=== PATIENT | male | born 1995 | race Caucasian/White ===

== ENCOUNTER 2019-12-11 08:26 | Emergency (ER) | payer OTHER ==
[~2019-12-11] VITALS: Ht 177.8 cm; Wt 63.6 kg
[~2019-12-11 08:26] MED LIST: ONDA4TAB10 SL; SERT25TA PO
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
[2019-12-11] MEDS ORDERED: ACETAMINOPHEN 500 MG TABLET PO ONE (09:00)
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
[2019-12-11 10:14] VITALS: BP 112/60
== END 2019-12-11 09:55 | disposition home or self-care (01) ==
LOC: ER 08:26
DX: S00.511A Abrasion of lip, initial encounter (principal); R51 Headache; M54.2 Cervicalgia; V49.49XA Driver injured in collision with other motor vehicles in traffic accident, initial encounter; Y93.I9 Activity, other involving external motion; Y92.488 Other paved roadways as the place of occurrence of the external cause; Y99.8 Other external cause status
CPT/HCPCS: 70450; 70486; 72125; 99285-25

== ENCOUNTER 2021-04-06 14:17 | Emergency (ER) | payer BC, OTHER ==
[~2021-04-06] VITALS: Ht 177.8 cm; Wt 63.8 kg
[2021-04-06] MEDS ORDERED: IV NORMAL SALINE 1,000ML 1,000 ML IV ONE ×2 (15:30→18:15)
[2021-04-06] MEDS ORDERED: ONDANSETRON PF 4 MG/2 ML VIAL. IVP ONE (15:30)
[2021-04-06] MEDS ORDERED: IOHEXOL 350 MG/ML 100 ML VIAL. IV ONE (15:30)
--- NOTE | 2021-04-06 15:37 | PHYS DOC ---
Past History Past Medical History: No Pertinent History (ZHANNA GARCIA APRN) Past Surgical History: Appendectomy (ZHANNA GARCIA APRN) Smoking: Non-smoker Alcohol Use: Rarely Drug Use: None Social History Narrative: last used one week ago (ZHANNA GARCIA APRN) General Adult EDM: Chief Complaint: ABDOMINAL PAIN HPI: HPI: Patient is a 25-year-old male that presents today with diffuse abdominal pain, vomiting blood, and chills. Patient states his symptoms started this morning around 10:00, he started vomiting he has had 6 episodes of vomiting blood he states he says his abdominal pain is diffuse mostly in the upper abdomen area, patient also states he has diarrhea but he states his diarrhea has been ongoing for 2 to 3 months. Patient denies being around anybody that is been sick over the last 24 to 48 hours, he also denies eating any foods that he thought may not be good. (ZHANNA GARCIA APRN) Review of Systems: Review of Systems: Constitutional: chills Eyes: Denies change in visual acuity HENT: Denies nasal congestion or sore throat Respiratory: Denies cough or shortness of breath Cardiovascular: Denies chest pain or edema GI: abdominal pain, nausea, vomiting blood, diarrhea, denies bloody stools : Denies dysuria Musculoskeletal: body aches Integument: Denies rash Neurologic: Denies headache, focal weakness or sensory changes Endocrine: Denies polyuria or polydipsia Lymphatic: Denies swollen glands Psychiatric: Denies depression or anxiety (ZHANNA GARCIA APRN) Current Medications: Current Meds: Current Medications Medications (Trade) Dose Ordered Sig/Tomasz Start Time Stop Time Status Last Admin Dose Admin Fentanyl Citrate (Fentanyl 2ml Vial) 50 mcg 1X ONCE 04/06/21 15:30 04/06/21 15:31 Iohexol (Omnipaque 350 Mg/ml) 100 ml 1X ONCE 04/06/21 15:30 04/06/21 15:31 Ondansetron HCl (Zofran) 4 mg 1X ONCE 04/06/21 15:30 04/06/21 15:31 Sodium Chloride 1,000 ml @ 1,000 mls/hr 1X ONCE 04/06/21 15:30 04/06/21 16:29 (ZHANNA GARCIA APRN) Allergies: Allergies: Allergies Coded Allergies Type Severity Reaction Last Updated Verified No Known Drug Allergies 04/06/21 No (ZHANNA GARCIA APRN) Physical Exam: PE: Constitutional: Well developed, well nourished, mild distress, non-toxic appearance. [] HENT: Normocephalic, atraumatic, bilateral external ears normal, oropharynx moist, no oral exudates, nose normal. [] Eyes: PERRLA, EOMI, conjunctiva normal, no discharge. [] Neck: Normal range of motion, no tenderness, supple, no stridor. [] Cardiovascular:Heart rate regular rhythm, no murmur [] Lungs & Thorax: Bilateral breath sounds clear to auscultation [] Abdomen: Bowel sounds hypoactive, abd tender to touch and guarded with palpations Skin: Warm, dry, pale, no erythema, no rash. [] Back: No tenderness, no CVA tenderness. [] Extremities: No tenderness, no cyanosis, no clubbing, ROM intact, no edema. [] Neurologic: Alert and oriented X 3, normal motor function, normal sensory function, no focal deficits noted. [] Psychologic: Affect normal, judgement normal, mood normal. [] (ZHANNA GARCIA APRN) Current Patient Data: Labs: Laboratory Tests Test 04/06/21 15:30 04/06/21 17:20 White Blood Count 9.2 x10^3/uL Red Blood Count 5.09 x10^6/uL Hemoglobin 15.7 g/dL Hematocrit 44.4 % Mean Corpuscular Volume 87 fL Mean Corpuscular Hemoglobin 31 pg Mean Corpuscular Hemoglobin Concent 35 g/dL Red Cell Distribution Width 13.5 % Platelet Count 210 x10^3/uL Neutrophils (%) (Auto) 79 % Lymphocytes (%) (Auto) 14 % Monocytes (%) (Auto) 6 % Eosinophils (%) (Auto) 0 % Basophils (%) (Auto) 1 % Neutrophils # (Auto) 7.3 x10^3uL Lymphocytes # (Auto) 1.2 x10^3/uL Monocytes # (Auto) 0.6 x10^3/uL Eosinophils # (Auto) 0.0 x10^3/uL Basophils # (Auto) 0.1 x10^3/uL Sodium Level 137 mmol/L Potassium Level 3.5 mmol/L Chloride Level 100 mmol/L Carbon Dioxide Level 21 mmol/L Anion Gap 16 Blood Urea Nitrogen 9 mg/dL Creatinine 0.9 mg/dL Estimated GFR (Cockcroft-Gault) 102.8 BUN/Creatinine Ratio 10 Glucose Level 147 mg/dL Calcium Level 9.6 mg/dL Total Bilirubin 0.7 mg/dL Aspartate Amino Transf (AST/SGOT) 30 U/L Alanine Aminotransferase (ALT/SGPT) 31 U/L Alkaline Phosphatase 97 U/L Total Protein 7.4 g/dL Albumin 4.7 g/dL Albumin/Globulin Ratio 1.7 Lipase 62 U/L SARS-CoV-2 Antigen (Rapid) Negative Urine Collection Type Clean catch Urine Color Yellow Urine Clarity Clear Urine pH 8.5 Urine Specific [place] 1.015 Urine Protein 30 mg/dl Urine Glucose (UA) Neg mg/dL Urine Ketones (Stick) 80 mg/dL Urine Blood Neg Urine Nitrite Neg Urine Bilirubin Neg Urine Urobilinogen Dipstick 1.0 mg/dL Urine Leukocyte Esterase Neg Urine RBC 0 /HPF Urine WBC 0 /HPF Urine Squamous Epithelial Cells Occ /LPF Urine Bacteria 0 /HPF Current Medications Medications (Trade) Dose Ordered Sig/Tomasz Route PRN Reason Start Time Stop Time Status Last Admin Dose Admin Sodium Chloride 1,000 ml @ 1,000 mls/hr 1X ONCE IV 04/06/21 15:30 04/06/21 16:29 DC 04/06/21 15:37 Ondansetron HCl (Zofran) 4 mg 1X ONCE IVP 04/06/21 15:30 04/06/21 15:31 DC 04/06/21 15:38 Fentanyl Citrate (Fentanyl 2ml Vial) 50 mcg 1X ONCE IVP 04/06/21 15:30 04/06/21 15:31 DC 04/06/21 15:39 Iohexol (Omnipaque 350 Mg/ml) 100 ml 1X ONCE IV 04/06/21 15:30 04/06/21 15:31 DC 04/06/21 15:45 Famotidine (Pepcid Vial) 20 mg 1X ONCE IVP 04/06/21 16:30 04/06/21 16:31 DC 04/06/21 17:50 Sodium Chloride 1,000 ml @ 1,000 mls/hr 1X ONCE IV 04/06/21 18:15 04/06/21 19:14 04/06/21 18:41 Vital Signs: Vital Signs Date Time Temp Pulse Resp B/P (MAP) Pulse Ox O2 Delivery O2 Flow Rate FiO2 04/06/21 15:03 98.6 68 16 111/46 (67) 100 Room Air (ZHANNA GARCIA APRN) EKG: EKG: [] (ZHANNA GARCIA APRN) Radiology/Procedures: Radiology/Procedures: [REASON: abdominal pain PROCEDURE: CT ABD PELV W/ IV CONTRST ONLY EXAM: CT Abdomen and Pelvis with IV contrast CLINICAL HISTORY: Reason: abdominal pain / Spl. Instructions: OMNI 350 75ML / History: . COMPARISON: none TECHNIQUE: Helical CT of the abdomen and pelvis was performed following the administration of intravenous contrast. Axial, coronal and sagittal reformatted images were generated. PQRS compliance statement - One or more of the following individualized dose reduction techniques were utilized for this study: 1. Automated exposure control 2. Adjustment of the mA and/or kV according to patient size 3. Use of iterative reconstruction technique FINDINGS: Lower Chest: Visualized lung bases are clear. Abdomen and Pelvis: The liver, gallbladder, spleen, adrenals, and pancreas are unremarkable. Kidneys demonstrate normal enhancement bilaterally. No nephrolithiasis or hydroureteronephrosis. Mild distal esophageal wall thickening may relate to reflux dysphagia process with tiny hiatal hernia. There is mild mucosal thickening and hyperenhancement of the lower portion of the stomach which may be secondary to underdistention. No evidence of bowel obstruction or focal inflammation of the small and large bowel. Appendix is absent. Mild to moderate colonic stool burden. No free intra- abdominal air or free fluid. No pathologic adenopathy. Vasculature is normal in course and caliber. Urinary bladder is unremarkable. Prostate gland is normal. Anterior abdominal wall is normal. No acute fracture or suspicious osseous abnormalities. Benign limbus vertebrae along the anterior superior endplate of L3. IMPRESSION: 1. Mild mucosal thickening and hyperenhancement involving the lower portion of the stomach which may be due to to underdistention or mild gastritis. Mild distal esophageal wall thickening may relate to reflux dysphagia process. 2. Otherwise, no evidence of acute process in the abdomen or pelvis. Electronically signed by: Nicho Burnett DO (04/06/2021 4:24 PM) [id number]] (ZHANNA GARCIA APRN) Heart Score: C/O Chest Pain: N/A Risk Factors: Risk Factors: DM, Current or recent (<one month) smoker, HTN, HLP, family history of CAD, obesity. Risk Scores: Score 0 - 3: 2.5% MACE over next 6 weeks - Discharge Home Score 4 - 6: 20.3% MACE over next 6 weeks - Admit for Clinical Observation Score 7 - 10: 72.7% MACE over next 6 weeks - Early Invasive Strategies (ZHANNA GARCIA APRN) Course & Med Decision Making: Course & Med Decision Making Pertinent Labs and Imaging studies reviewed. (See chart for details) 1720 reassessment of patient patient continues to be nauseated, orders placed, UA sent. 190 reassessment of patient states he feels really well, second liter of IV fluids continues to infuse. We will send patient home, will have him follow a clear liquid diet over the next 12 to 24 hours, after that I would encourage him to do a brat diet for the next 12 to 24 hours and then advance as tolerated. We will also give the patient Pepcid to be taken over the next 14 days. We will also have him follow-up with his primary care physician this week for further management of the gastritis. We will also encourage him to follow-up with a gastrointestinal specialist for evaluation of his stomach as well. (ZHANNA GARCIA APRN) Dragon Disclaimer: Dragon Disclaimer: This electronic medical record was generated, in whole or in part, using a voice recognition dictation system. (ZHANNA GARCIA APRN) Attending Co-Sign The patient was seen and interviewed as well as examined at the bedside. The chart was reviewed. The case was discussed. Agree with the plan of care. (PATRICIA FLORES DO) Departure Departure: Impression: Primary Impression: Gastritis Qualified Codes: K29.00 - Acute gastritis without bleeding Additional Impression: Nausea & vomiting Qualified Codes: R11.2 - Nausea with vomiting, unspecified Disposition: HOME / SELF CARE / HOMELESS Condition: STABLE Referrals: JADE KEARNS MD (PCP) DAMIÁN BUTLER MD Patient Instructions: Clear Liquid Diet, Gastritis, Adult, Nausea and Vomiting, Viral Gastroenteritis Additional Instructions: Clear liquids for the next 12 to 24 hours, then follow the BRAT (bananas, rice, applesauce, toast, or potatoes) for the next 24 hours and then advance as tolerated. Pepcid take as directed Zofran take 1 tablet every 6 hours as needed for nausea, I would take this wait 30 minutes then try clear liquids Follow-up with your primary care physician or the gastrointestinal specialist for further management of your stomach pains. Also let your primary care physician know about the diarrhea you have been experiencing over the last 2 weeks. Scripts Ondansetron Hcl (ZOFRAN) 4 Mg Tablet 4 MG PO TID PRN PRN for NAUSEA, #15 TAB Prov: ZHANNA GARCIA [employer] BENEF[employer] MANAGER 04/06/21 Famotidine (PEPCID) 20 Mg Tablet 20 MG PO BID for dyspepsia for 7 Days, #14 TAB Prov: ZHANNA GARCIA [employer] BENEFITS MANAGER 04/06/21 ZHANNA GARCIA [employer] BENEFITS MANAGER Apr 06, 2021 15:37 PATRICIA FLORES DO Apr 08, 2021 14:24
[2021-04-06 15:54] LABS: BASO # 0.1 x10^3/uL (0.0-0.2); BASO % 1 % (0-3); EOS % 0 % (0-3); HEMATOCRIT 44.4 % (39.0-53.0); HEMOGLOBIN 15.7 g/dL (13.0-17.5); LYMPH # 1.2 x10^3/uL (1.0-4.8); LYMPH % 14 % (24-48); MEAN CORPUSCULAR HEMOGLOBIN 31 pg (25-35); MEAN CORPUSCULAR HGB CONC 35 g/dL (31-37); MEAN CORPUSCULAR VOLUME 87 fL (79-100); MONO # 0.6 x10^3/uL (0.0-1.1); MONO % 6 % (0-9); NEUT # 7.3 x10^3uL (1.8-7.7); NEUT % 79 % (31-73); PLATELET COUNT 210 x10^3/uL (140-400); RED BLOOD COUNT 5.09 x10^6/uL (4.30-5.70); RED CELL DISTRIBUTION WIDTH 13.5 % (11.5-14.5); WHITE BLOOD COUNT 9.2 x10^3/uL (4.0-11.0)
[2021-04-06 16:05] LABS: CALCIUM 9.6 mg/dL (8.5-10.1); CREATININE 0.9 mg/dL (0.7-1.3); GFR 102.8; POTASSIUM 3.5 mmol/L (3.5-5.1)
[2021-04-06 16:08] LABS: ALBUMIN 4.7 g/dL (3.4-5.0); ALBUMIN/GLOBULIN RATIO 1.7 (1.0-1.7); TOTAL BILIRUBIN 0.7 mg/dL (0.2-1.0); TOTAL PROTEIN 7.4 g/dL (6.4-8.2)
--- NOTE | 2021-04-06 16:26 | RAD ---
EXAM: CT Abdomen and Pelvis with IV contrast CLINICAL HISTORY: Reason: abdominal pain / Spl. Instructions: OMNI 350 75ML / History: . COMPARISON: none TECHNIQUE: Helical CT of the abdomen and pelvis was performed following the administration of intrave nous contrast. Axial, coronal and sagittal reformatted images were generated. PQRS compliance statement - One or more of the following individualized dose reduction techniques wer e utilized for this study: 1. Automated exposure control 2. Adjustment of the mA and/or kV according to patient size 3. Use of iterative reconstruction technique FINDINGS: Lower Chest: Visualized lung bases are clear. Abdomen and Pelvis: The liver, gallbladder, spleen, adrenals, and pancreas are unremarkable. Kidneys demonstrate normal e nhancement bilaterally. No nephrolithiasis or hydroureteronephrosis. Mild distal esophageal wall thickening may relate to reflux dysphagia process with tiny hiatal hernia . There is mild mucosal thickening and hyperenhancement of the lower portion of the stomach which may be secondary to underdistention. No evidence of bowel obstruction or focal inflammation of the small and large bowel. Appendix is absent. Mild to moderate colonic stool burden. No free intra-abdominal air or free fluid. No pathologic adenopathy. Vasculature is normal in course and caliber. Urinary bladder is unremarkable. Prostate gland is normal. Anterior abdominal wall is normal. No acut e fracture or suspicious osseous abnormalities. Benign limbus vertebrae along the anterior superior e ndplate of L3. IMPRESSION: 1. Mild mucosal thickening and hyperenhancement involving the lower portion of the stomach which may be due to to underdistention or mild gastritis. Mild distal esophageal wall thickening may relate to reflux dysphagia process. 2. Otherwise, no evidence of acute process in the abdomen or pelvis. Electronically signed by: Nicho Burnett DO (04/06/2021 4:24 PM) [id number]
[2021-04-06] MEDS ORDERED: FAMOTIDINE 20 MG/2 ML VIAL IVP ONE (16:30)
[2021-04-06 18:11] LABS: BILIRUBIN,URINE NEG (NEG); CLARITY,URINE CLEAR; COLOR,URINE YELLOW; GLUCOSE,URINE NEG (NEG)
[2021-04-06 18:12] LABS: BACTERIA,URINE 0 /HPF (0-FEW); NITRITE,URINE NEG (NEG); RBC,URINE 0 /HPF (0-2); SQUAMOUS EPITHELIAL CELL,UR OCC /LPF; WBC,URINE 0 /HPF (0-4)
[2021-04-06] MEDS ORDERED: ONDA4TAB7 PO (19:14)
[2021-04-06] MEDS ORDERED: FAMO-63 PO (19:14)
[2021-04-06 19:24] VITALS: BP 107/61
== END 2021-04-06 19:24 | disposition home or self-care (01) ==
LOC: ER 14:17
DX: K29.00 Acute gastritis without bleeding (principal); Z20.822 Contact with and (suspected) exposure to COVID-19; Z90.89 Acquired absence of other organs
CPT/HCPCS: 74177; 80053; 81001; 83690; 85025; 87426; 96361; 96374; 96375; 99285; C9803; J2405; J3010; J3490; J7030; Q9967; U0003